=== PATIENT | female | born 1990 | race Hispanic/Latino ===

== ENCOUNTER → 2018-06-04 | Day surgery (SDC) | payer OTHER ==
[~2018-06-04] MED LIST: LIDOCAINE 1% MPF 30 ML VIAL SQ ONE; LIDOCAINE 1% MPF 5 ML VIAL ONE; Ringers Lactate 1,000 ML IV ONE; TERBUTALINE SULF 1 MG/1ML SQ ONE
--- NOTE | 2018-06-04 11:47 | P.HP ---
Certification for Inpatient Patient admitted to: Observation With expected LOS: <2 Midnights Patient will require the following post-hospital care: None Practitioner: I am a practitioner with admitting privileges, knowledge of patient current condition, hospital course, and medical plan of care. Services: Services provided to patient in accordance with Admission requirements found in Title 42 Section 412.3 of the Code of Federal Regulations Patient History Date of Service: 06/05/18 Reason for admission: Cerclage removal History of Present Illness: 28 y.o. a 37w1d admitted for cerclage removal. Pt had an emergency cerclage placement at 21 weeks. Removal was attempted in the office yesterday and without success. The knot anteriorly was removed, however, the posterior part of suture remained in place. She is being admitted today as an outpatient for removal with admit to obs for observation post procedure. LAURA: 06/24/2018 Allergies NKDA Allergy (Uncoded 10/25/15 08:18) Unknown Home medications list reviewed: Yes - Past Medical/Surgical History -: Incompetent cervix -: H/o PTB -: Emergency Peterson cerclage placement - Social History Smoking Status: Never smoker Alcohol use: No CD- Drugs: No Caffeine use: No Place of Residence: Home Review of Systems Mild cramping Physical Examination - Physical Exam General: Alert, In no apparent distress, Oriented x3 Respiratory: Other (Normal effort) Cardiovascular: Normal pulses Musculoskeletal: No swelling, No erythema, No tenderness Integumentary: No rashes, No breakdown Neurological: Normal speech, Normal strength at 5/5 x4 extr Female Exam - Female Pelvic Cervix: Dilation (2 cm, cerclage palpable on digital exam), Effacement (50), station (-3) Uterus: Non-tender, Soft, Gravid - Obstetrics heart rate tracing: Category 1 Contractions: Frequency (Irritability) Amniotic membrane: Intact Assessment and Plan - Problems (Diagnosis) (1) Cervical cerclage suture present in third trimester Current Visit: Yes Status: Acute Plan: Admitted for cerclage removal to be done with paracervical block. The patient to be monitored following procedure for possible onset of labor - Advance Directives Does patient have a Living Will: No Does patient have a Durable POA for Healthcare: No
--- NOTE | 2018-06-04 22:48 | P.OP ---
Preoperative diagnosis: Peterson cerclage removal Postoperative diagnosis: Same with embedded suture material in posterior cervix Primary procedure: Cerclage removal Anesthesia: Para-cervical block Estimated blood loss: 100 cc Specimen: None Findings: See operative report Operative Technique: Findings: Cervical dilation 3-4 cm, thick, -2 station. Suture material not visible, but palpable on exam on posterior cervix. Unable to remove remaining suture. Procedure: The patient was brought to the Operating Room with an IV in place. An appropriate time out was done. She was positioned in [facility]-cane stirrups. She was prepped and draped in the usual sterile fashion. Next, Joyner and right angle retractors were placed in the vagina to bring the cervix into view. A total of 20 cc of 1% lidocaine plain was injected for a paracervical block. Anesthesia was confirmed. A ring forcep was used to gently grasp the cervix and elevate it to locate remaining suture material on posterior cervix. Suture was not visualized, but was be palpable in the internal os. Retractors were removed and a large disposable bivalve speculum was used instead. Suture material was still not visualized, however. Gentle inspection of the the cervix was done in a circumferential manner, but no suture material was seen. The speculum was removed. Palpation confirmed suture material noted to be embedded along the posterior lip of the cervix. No visible suture was located for removal. Patient began to complain of discomfort and feeling pressure. Procedure was aborted and the remaining cerclage was not able to be removed. Bleeding was minimal. There were no complications. Patient was taken to recovery in good condition for monitoring and repeat SVE. Complications: Other (Unable to remove cerclage) Fluids & blood products: Per anesthesia Transferred to: Recovery Room Condition: Good
== END ==
LOC: L&D 09:59
PROVIDERS: ATTEND Obstetrics & Gynecology
PROC: 0UCC7ZZ Extirpation of Matter from Cervix, Via Natural or Artificial Opening (ICD-10-PCS; principal; 2018-06-04)
DX: O34.33 Maternal care for cervical incompetence, third trimester (principal); Z53.8 Procedure and treatment not carried out for other reasons
CPT/HCPCS: 99218; J3105

== ENCOUNTER 2018-06-18 07:00 | Inpatient (IN) | payer OTHER ==
[2018-06-18] MEDS ORDERED: Ringers Lactate 1,000 ML IV PRN (07:40)
[2018-06-18] MEDS ORDERED: CARBOPROST TROME 250 MCG/ML IM PRN (07:40)
[2018-06-18] MEDS ORDERED: METHYLERGONOVINE 0.2MG/ML AMP IM PRN (07:40)
[2018-06-18] MEDS ORDERED: Ringers Lactate 1,000 ML IV SCH (08:00)
[2018-06-18] MEDS ORDERED: OXYTOCIN/LR 20 UNIT/1,000 ML BAG IV SCH (08:00)
[2018-06-18 08:03] VITALS: BMI 37.8
[2018-06-18 08:08] LABS: RPR Titer ND
[2018-06-18 08:11] LABS: Urine Appearance CLEAR; Urine Bilirubin NEGATIVE (NEG); Urine Blood NEGATIVE (NEG); Urine Color YELLOW; Urine Glucose NEGATIVE (NEG); Urine Protein NEGATIVE (NEG); Urine Urobilinogen 0.2 mg/dL (0.2-1.0); Urine pH 6.5 (5.0-7.0)
[2018-06-18 08:13] LABS: Urine Microscopic Reflex ORDER UMIC
[2018-06-18 08:25] LABS: Absolute Lymphocytes (CBC) 1.3 K/uL (0.7-4.9); Absolute Monocytes 0.5 K/uL (0.1-1.3); Absolute Neutrophil 5.9 K/uL (1.8-8.0); Basophils % 0.3 % (0-1.3); Eosinophils % 0.9 % (0-4.4); Hematocrit 29.6 % (36.0-45.0); Lymphocytes % 16.9 % (15.3-44.8); MCV 85.5 fL (80-100); MPV 10.6 fL (7.6-11.3); Monocytes % 6.1 % (3.3-12.3); RBC Red Blood Cell Count 3.47 M/uL (3.86-4.86)
[2018-06-18 08:29] LABS: Urine Bacteria 20-50 /HPF (<20); Urine RBC <5 /HPF (NONE SEEN)
[2018-06-18 08:30] LABS: Urine Culture Reflex Order NOT NEEDED; Urine Mucus MOD /HPF (NONE SEEN)
[2018-06-18] MEDS ORDERED: BUTORPHANOL 1 MG/ML INJ IV PRN (09:09)
[2018-06-18] MEDS ORDERED: PROMETHAZINE 25 MG/ML VIAL IV PRN (09:09)
[2018-06-18] MEDS ORDERED: PROMETHAZINE 25 MG/ML VIAL ONE (09:17)
[2018-06-18] MEDS ORDERED: BUTORPHANOL 1 MG/ML INJ ONE (09:17)
[2018-06-18] MEDS ORDERED: FENTANYL/BUPIVACAINE/NS/PF 200 MCG/100 ML BAG EP PRN (09:51)
[2018-06-18] MEDS ORDERED: BUPIVACAINE 0.25% PF 10 ML VIAL IV ONE (09:52)
[2018-06-18] MEDS ORDERED: FENTANYL CITR 100 MCG/2 ML ONE (10:51)
[2018-06-18] MEDS ORDERED: LIDOCAINE 2% INJ, 20 mL 0 ML ONE (11:31)
[2018-06-18] MEDS ORDERED: BISACODYL 10 MG RECTAL SUPP RECT PRN (11:38)
[2018-06-18] MEDS ORDERED: ZOLPIDEM TARTRATE 5 MG TABLET PO PRN (11:38)
[2018-06-18] MEDS ORDERED: DOCUSATE NA/SENNA CONC 1 TAB PO PRN (11:38)
[2018-06-18] MEDS ORDERED: METHYLERGONOVINE 0.2 MG TAB PO PRN (11:38)
[2018-06-18] MEDS ORDERED: ACETAMINOPHEN 500 MG TAB PO PRN (11:38)
[2018-06-18] MEDS ORDERED: IBUPROFEN 200 MG TAB PO PRN (11:38)
[2018-06-18] MEDS ORDERED: ONDANSETRON 4 MG (ODT) TAB PO PRN (11:38)
[2018-06-18] MEDS ORDERED: Oxycodone HCl/Acetaminophen 1 TAB TAB PO PRN (11:38)
[2018-06-18] MEDS ORDERED: METHYLERGONOVINE 0.2MG/ML AMP IM ONE (12:41)
--- NOTE | 2018-06-18 13:53 | HP ---
Date of Admission: 06/18/2018 History Of Present Illness: Zee is a 28-year-old, 6, para 2-1-2-3, who presents at 39 week s and 1 day gestation for elective induction of labor. 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 The patient received a rescue cerclage by [facility], which was done on 2017. Cerclage was removed on June 03, 2018 at which point the patient was 37 weeks gestati on. Once the cerclage was removed, a few days later, the patient dilated to 3-4 cm. She has been at 3-4 cm for the last 3 weeks. When she was seen on the office on Saturday, she stated that she desires an elective induction of labor. Discussed with the patient that we can schedule this once she is 39 weeks gestation. The patient states she has been having some back pain and irregular contractions. She denies leakage of fluid and reports good movement. See record for further detail s. Past Medical History: The patient denies. Past Surgical History: Rescue cerclage placement and removal. Obstetrical And Gynecologic History: She has a history of 3 vaginal births and 2 abortions. She 2 p rior preterms, 1 at 27 weeks and 1 at 37 weeks. Her first was at 40 weeks ge station and also includes an abnormal Pap smear with HPV. Social History: Denies tobacco, alcohol, or drug use. She is single with the father of the baby. Family History: Noncontributory. Physical Examination: Vital Signs: On admission, blood pressure is 117/77, pulse of 77, respirations 18, and temperature i s 98.0. General: The patient resting in bed, mild distress due to contractions. Head and Neck: Normocephalic, atraumatic. Neck: Supple. Heart: Regular rate and rhythm. Respiratory: Symmetric, nonlabored breathing. Abdomen: Gravid. Extremities: Bilateral lower extremities, no clubbing, cyanosis, or edema. Vaginal: 4 cm dilated, 70% effaced, -1 station. Rupture of membranes was performed. Clear fluid is noted. Laboratory Findings: GBS is negative. White blood cell count 7.7, hemoglobin 10.1, hematocrit 29.3, and platelet count is 204. Urine, no protein. Blood type, she is B positive. No antibodies. Rube lla immune. heart rate monitoring, baseline heart rate of 130, moderate variability, goo d accelerations noted. Category 2 tracing. Contractions are every 3-4 minutes. Pitocin is at 4 mil liunits. Assessment And Plan: Zee hernandez is a 28-year-old, 6, para 2-1-2-3, who presents at 39 weeks and 1 day gestation for elective induction of labor. Pitocin is being given for labor augm entation. Rupture of membranes has been performed. GBS is negative. The patient declined epidural placed at this time, desires IV pain medication. Anticipate vaginal . ALEX Voice ID: [id number]
--- NOTE | 2018-06-18 21:50 | P.OP ---
Date of Service: 06/18/18 Findings and Operative Technique Patient delivered a viable male in cephalic presentation on 06/18/18 at 11 :30 AM. Once was delivered the nose and mouth were suctioned with a suction bulb. The cord was clamped and cut and was placed on mother's abdomen for skin to skin bonding. Attention was then turned to the placenta which was delivered with gentle traction at 11:32AM. Placenta was examined and noted to be intact and sent to pathology. Superficial perineal lacerations were noted. No sutures were required. EBL was 300 cc. Fundus is firm. Mom and baby are doing well. APGARS were 9/9. Weight was found to be 7 lb. First stage of labor was 2 hours and 6 mins. Second stage was 9 minutes.
[2018-06-18 23:29] LABS: RPR (Rapid Plasma Reagin) NON-REACT (NON-REACT)
[2018-06-19] MEDS: Oxycodone HCl/Acetaminophen 1 TAB TAB PO PRN ×2 (03:57→09:28)
[2018-06-19 04:42] LABS: Absolute Lymphocytes (CBC) 1.9 K/uL (0.7-4.9); Absolute Monocytes 0.8 K/uL (0.1-1.3); Absolute Neutrophil 8.4 K/uL (1.8-8.0); Basophils % 0.6 % (0-1.3); Eosinophils % 0.6 % (0-4.4); Hematocrit 28.6 % (36.0-45.0); Lymphocytes % 16.9 % (15.3-44.8); MCH 29.1 pg (27.0-35.0); MCV 86.2 fL (80-100); MPV 10.9 fL (7.6-11.3); Monocytes % 7.3 % (3.3-12.3); RBC Red Blood Cell Count 3.32 M/uL (3.86-4.86)
[2018-06-19] MEDS ORDERED: Tdap (Diph,Pertuss(Acell),Tet Vac) 0.5 ML SYR IMVAC ONE (10:13)
[2018-06-19 11:39] VITALS: BP 98/52; TEMP 98.5
--- NOTE | 2018-06-19 22:27 | P.DS ---
Admission Date: 06/18/18 Discharge Date: 06/25/18 Disposition: ROUTINE DISCHARGE Discharge Condition: GOOD Brief History of Present Illness: see h&p Hospital Course: Patient did well following delivery of the . She has been bonding well with the baby. Her pain is well controlled. She is tolerating a regular diet. She is voiding without difficulty. Vital Signs/Physical Exam: Temp Pulse Resp BP Pulse Ox 98.5 F 75 18 98/52 L 06/19/18 11:38 06/19/18 11:38 06/19/18 11:38 06/19/18 11:38 General: Alert, In no apparent distress HEENT: Atraumatic Neck: Supple Respiratory: Normal air movement Cardiovascular: Normal pulses Gastrointestinal: No rebound, No guarding, Other (fundus firm ) Neurological: Normal gait, Normal speech Laboratory Data at Discharge: WBC 11.3 K/uL (4.3-10.9) H D 06/19/18 04:05 Hgb 9.7 g/dL (12.0-15.0) L 06/19/18 04:05 Hct 28.6 % (36.0-45.0) L 06/19/18 04:05 Plt Count 199 K/uL (152-406) 06/19/18 04:05 Home Medications: NK [No Home Meds] 06/18/18 Diet: Regular Activity: No lifting more than 10 lbs Followup: Prashanth Francis DO [ACTIVE - CAN ADMIT] - (Follow up care with Dr. Francis in 6 weeks. [phone])
[2018-06-20 19:12] LABS: HBsAG Nonreactive (Nonreactive)
== END 2018-06-19 13:40 | disposition home or self-care (01) | DRG 775 ==
LOC: 2ND-WC 07:00
PROVIDERS: ADMIT Student in an Organized Health Care Education/Training Program; ATTEND Student in an Organized Health Care Education/Training Program
PROC: 10E0XZZ Delivery of Products of Conception, External Approach (ICD-10-PCS; principal; 2018-06-18)
PROC: 10907ZC Drainage of Amniotic Fluid, Therapeutic from Products of Conception, Via Natural or Artificial Opening (ICD-10-PCS; 2018-06-18)
DX: O70.0 First degree perineal laceration during delivery (principal); Z3A.39 39 weeks gestation of pregnancy; Z37.0 Single live birth; Z14.8 Genetic carrier of other disease; Z23 Encounter for immunization
CPT/HCPCS: 36415; 81003; 81015; 85025; 86592; 86901; 87340; 88307; 90715; J0595; J2210; J2550; J2590; J3010

== ENCOUNTER 2019-03-15 20:21 | Emergency (ER) | payer OTHER, SELFPAY ==
--- NOTE | 2019-03-15 21:20 | ER ---
Nurse's Notes [facility] Name: Zee Catalan Age: 28 yrs Sex: Female : 1990 Arrival Date: 03/15/2019 Time: 20:27 Bed 7 Private MD: Diagnosis: Acute bacterial pharyngitis;Acute upper respiratory infection, unspecified Presentation: 03/15 20:28 Presenting complaint: Patient states: She has had a cough for the past week, that has aj1 gotten worse over the past 3 days. She started to lose her voice and get a sore throat yesterday, but today it started hurting more, felt more swollen and it hurts to swallow. Respirations even and unlabored, breath sounds CTA. Transition of care: patient was not received from another setting of care. Onset of symptoms was February 2019. Risk Assessment: Do you want to hurt yourself or someone else? Patient reports no desire to harm self or others. Initial Sepsis Screen: Does the patient meet any 2 criteria? HR > 90 bpm. No. Patient's initial sepsis screen is negative. Does the patient have a suspected source of infection? Yes: Productive cough/pneumonia. Care prior to arrival: None. 20:28 Method Of Arrival: Ambulatory aj1 20:28 Acuity: BENY 4 aj1 Triage Assessment: 20:30 General: Appears in no apparent distress. comfortable, Behavior is calm, cooperative, aj1 appropriate for age. Pain: Complains of pain in forehead, left aspect of posterior pharynx and right aspect of posterior pharynx Pain does not radiate. Pain: Pain currently is 10 out of 10 on a pain scale. EENT: Throat is reddened has enlarged tonsils bilaterally Reports sore throat. Neuro: Level of Consciousness is awake, alert, obeys commands, Oriented to person, place, time, situation. Cardiovascular: Patient's skin is warm and dry. Respiratory: Reports cough that is productive, Airway is patent Respiratory effort is even, unlabored, Respiratory pattern is regular, symmetrical. ADVISORY INTERN: 20:30 LMP N/A - Recent miscarriage aj1 Historical: - Allergies: 20:30 No Known Allergies; aj1 - Home Meds: 20:30 Zyrtec Oral [Active]; aj1 - PMHx: 20:30 None; aj1 - PSHx: 20:30 None; aj1 - Immunization history:: Flu vaccine is not up to date. - Social history:: Smoking status: Patient/guardian denies using tobacco. - Ebola Screening: : Patient denies travel to an Ebola-affected area in the 21 days before illness onset. Screenin:45 Abuse screen: Denies threats or abuse. Denies injuries from another. Nutritional aa1 screening: No deficits noted. Tuberculosis screening: No symptoms or risk factors identified. Fall Risk None identified. Assessment: 20:45 General: Appears in no apparent distress. comfortable, Behavior is calm, cooperative, aa1 appropriate for age. Pain: Complains of pain in throat Pain began 2-3 days ago. Neuro: Level of Consciousness is awake, alert, obeys commands, Oriented to person, place, time, situation, Moves all extremities. Gait is steady. Cardiovascular: Heart tones S1 S2 present Rhythm is regular. Respiratory: Reports cough that is non-productive, Airway is patent Respiratory effort is even, unlabored, Respiratory pattern is regular, symmetrical, Breath sounds are clear bilaterally. GI: No signs and/or symptoms were reported involving the gastrointestinal system. : No signs and/or symptoms were reported regarding the genitourinary system. EENT: Throat is clear. Derm: Skin is intact, is healthy with good turgor, Skin is pink, warm \T\ dry. Musculoskeletal: Circulation, motion, and sensation intact. Capillary refill < 3 seconds. 21:37 Reassessment: Patient appears in no apparent distress at this time. Patient is alert, aa1 oriented x 3, equal unlabored respirations, skin warm/dry/pink. Discussed d/c \T\ f/u instructions with pt \T\ friend; denies questions or concerns at this time. Amb to lobby with steady gait. Vital Signs: 20:30 BP 130 / 63; Pulse 93; Resp 18; Temp 98.8; Pulse Ox 100% on R/A; Weight 74.84 kg (R); aj1 Height 5 ft. 1 in. (154.94 cm) (R); Pain 10/10; 21:37 BP 122 / 67; Pulse 89; Resp 16; Temp 98.7; Pulse Ox 99% on R/A; Pain 5/10; aa1 20:30 Body Mass Index 31.18 (74.84 kg, 154.94 cm) aj1 ED Course: 20:27 Patient arrived in ED. es 20:30 Triage completed. aj1 20:30 Arm band placed on Patient placed in an exam room. aj1 20:45 Patient has correct armband on for positive identification. Bed in low position. Call aa1 light in reach. Pulse ox on. NIBP on. 20:54 Nicola Novoa PA is PHCP. jr8 20:54 Moisés Lares MD is Attending Physician. jr8 21:06 Allie Lopes, RN is Primary Nurse. aa1 21:37 No provider procedures requiring assistance completed. Patient did not have IV access aa1 during this emergency room visit. Administered Medications: 21:30 Drug: Tussionex Pennkinetic ER 5 ml Route: PO; aa1 21:36 Follow up: Response: Medication administered at discharge. aa1 Outcome: 21:19 Discharge ordered by . jr8 21:37 Discharged to home ambulatory, with friend. aa1 21:37 Condition: good 21:37 Discharge instructions given to patient, friend, Instructed on discharge instructions, follow up and referral plans. medication usage, Demonstrated understanding of instructions, follow-up care, medications, Prescriptions given X 3. 21:39 Patient left the ED. aa1 Signatures: Shawnee Wyman RN RN aj1 Allie Lopes, FAYE RN aa1 Liliana Arellano Josh, PA PA jr8
--- NOTE | 2019-03-15 21:20 | EDPHYS ---
Physician Documentation [facility] Name: Zee Catalan Age: 28 yrs Sex: Female : 1990 Arrival Date: 03/15/2019 Time: 20:27 Bed 7 Private MD: ED Physician Moisés Lares HPI: 03/15 21:14 This 28 yrs old Female presents to ER via Ambulatory with complaints of Throat jr8 swelling. 21:14 The patient presents with sore throat. The patient describes throat pain as raw. Onset: jr8 The symptoms/episode began/occurred gradually, 2 day(s) ago. Severity of symptoms: At their worst the symptoms were moderate, in the emergency department the symptoms are unchanged. Modifying factors: The symptoms are alleviated by nothing, the symptoms are aggravated by swallowing, Patient's oral intake status: good. Associated signs and symptoms: Pertinent positives: cough, rhinorrhea. The patient has not experienced similar symptoms in the past. The patient has not recently seen a physician. Patient stated that she has had cough and rhinorrhea for one week. Stated that she now has sore throat for past two days that is getting worse . [employer]: 20:30 LMP N/A - Recent miscarriage aj1 Historical: - Allergies: 20:30 No Known Allergies; aj1 - Home Meds: 20:30 Zyrtec Oral [Active]; aj1 - PMHx: 20:30 None; aj1 - PSHx: 20:30 None; aj1 - Immunization history:: Flu vaccine is not up to date. - Social history:: Smoking status: Patient/guardian denies using tobacco. - Ebola Screening: : Patient denies travel to an Ebola-affected area in the 21 days before illness onset. ROS: 21:14 Eyes: Negative for injury, pain, redness, and discharge, Neck: Negative for injury, jr8 pain, and swelling, Cardiovascular: Negative for chest pain, palpitations, and edema, Abdomen/GI: Negative for abdominal pain, nausea, vomiting, diarrhea, and constipation, Back: Negative for injury and pain, MS/Extremity: Negative for injury and deformity, Skin: Negative for injury, rash, and discoloration, Neuro: Negative for headache, weakness, numbness, tingling, and seizure. 21:14 Constitutional: Positive for chills, fever. 21:14 ENT: Positive for rhinorrhea, sinus congestion, sore throat. 21:14 Respiratory: Positive for cough, Negative for dyspnea on exertion, shortness of breath, sputum production, wheezing. Exam: 21:16 Eyes: Pupils equal round and reactive to light, extra-ocular motions intact. Lids and jr8 lashes normal. Conjunctiva and sclera are non-icteric and not injected. Cornea within normal limits. Periorbital areas with no swelling, redness, or edema. Neck: Trachea midline, no thyromegaly or masses palpated, and no cervical lymphadenopathy. Supple, full range of motion without nuchal rigidity, or vertebral point tenderness. No Meningismus. Cardiovascular: Regular rate and rhythm with a normal S1 and S2. No gallops, murmurs, or rubs. Normal PMI, no JVD. No pulse deficits. Respiratory: Lungs have equal breath sounds bilaterally, clear to auscultation and percussion. No rales, rhonchi or wheezes noted. No increased work of breathing, no retractions or nasal flaring. Abdomen/GI: Soft, non-tender, with normal bowel sounds. No distension or tympany. No guarding or rebound. No evidence of tenderness throughout. Back: No spinal tenderness. No costovertebral tenderness. Full range of motion. Skin: Warm, dry with normal turgor. Normal color with no rashes, no lesions, and no evidence of cellulitis. MS/ Extremity: Pulses equal, no cyanosis. Neurovascular intact. Full, normal range of motion. Neuro: Awake and alert, GCS 15, oriented to person, place, time, and situation. Cranial nerves II-XII grossly intact. Motor strength 5/5 in all extremities. Sensory grossly intact. Cerebellar exam normal. Normal gait. 21:16 ENT: Exam is negative for earache, ear discharge, TM abnormalities, nasal discharge, Mouth: Lips: moist, Oral mucosa: pink and intact, moist, Gums: pink, Tongue: is moist, Posterior pharynx: Airway: patent, Tonsils: with erythema, no enlargement, no exudate, no ulcerations, Uvula: midline, non-edematous, no erythema, swelling, is not appreciated, erythema, that is mild. Vital Signs: 20:30 BP 130 / 63; Pulse 93; Resp 18; Temp 98.8; Pulse Ox 100% on R/A; Weight 74.84 kg (R); aj1 Height 5 ft. 1 in. (154.94 cm) (R); Pain 10/10; 21:37 BP 122 / 67; Pulse 89; Resp 16; Temp 98.7; Pulse Ox 99% on R/A; Pain 5/10; aa1 20:30 Body Mass Index 31.18 (74.84 kg, 154.94 cm) [facility] MDM: 20:54 Patient medically screened. jr8 21:16 Data reviewed: vital signs, nurses notes, lab test result(s), Flu: negative strep (-). jr8 Data interpreted: Pulse oximetry: on room air is 100 %. Interpretation: normal. Counseling: I had a detailed discussion with the patient and/or guardian regarding: the historical points, exam findings, and any diagnostic results supporting the discharge/admit diagnosis, lab results, the need for outpatient follow up, a family practitioner, to return to the emergency department if symptoms worsen or persist or if there are any questions or concerns that arise at home. 03/15 20:28 Order name: Flu; Complete Time: 21:14 [facility] 03/15 20:28 Order name: Strep; Complete Time: 21:03 [facility] 03/15 20:58 Order name: Throat Culture EDMS Administered Medications: 21:30 Drug: Tussionex Pennkinetic ER 5 ml Route: PO; aa1 21:36 Follow up: Response: Medication administered at discharge. aa Disposition: 03/15/19 21:19 Discharged to Home. Impression: Acute bacterial pharyngitis, Acute upper respiratory infection, unspecified. - Condition is Stable. - Discharge Instructions: Pharyngitis, Upper Respiratory Infection, Adult. - Prescriptions for Amoxicillin 875 mg Oral Tablet - take 1 tablet by ORAL route every 12 hours for 7 days; 14 tablet. Prednisone 20 mg Oral Tablet - take 1 tablet by ORAL route once daily for 5 days; 5 tablet. Guaifenesin AC 10- 100 mg/5 mL Oral Liquid - take 10 milliliter by ORAL route every 4 hours As needed; 240 milliliter. - Medication Reconciliation Form, Thank You Letter, Antibiotic Education, Prescription Opioid Use form. - Follow up: Private Physician; When: 1 week; Reason: Recheck today's complaints, Continuance of care, Re-evaluation by your physician. - Problem is new. - Symptoms have improved. Addendum: 03/17/2019 01:29 Co-signature as Attending Physician, Moisés Lares MD. g s Signatures: Dispatcher [employer] Shawnee Dumont, RN RN aj1 Allie Lopes RN RN aa1 Nicola Novoa, PA PA jr8 Moisés Lares MD MD gs Corrections: (The following items were deleted from the chart) 03/15 21:39 21:19 03/15/2019 21:19 Discharged to Home. Impression: Acute bacterial pharyngitis; aa1 Acute upper respiratory infection, unspecified. Condition is Stable. Forms are Medication Reconciliation Form, Thank You Letter, Antibiotic Education, Prescription Opioid Use. Follow up: Private Physician; When: 1 week; Reason: Recheck today's complaints, Continuance of care, Re-evaluation by your physician. Problem is new. Symptoms have improved. jr8
[2019-03-15] MEDS ORDERED: HYDROCODONE/CHLORPHEN 5 ML/OSYR ONE (21:42)
[2019-03-15 21:48] VITALS: BP 122/67; TEMP 98.7; O2SAT 99
== END 2019-03-15 21:39 | disposition home or self-care (01) ==
LOC: ER 20:21
DX: J02.8 Acute pharyngitis due to other specified organisms (principal); B96.89 Other specified bacterial agents as the cause of diseases classified elsewhere; J06.9 Acute upper respiratory infection, unspecified
CPT/HCPCS: 87070; 87081; 87804; 99283

== ENCOUNTER 2020-12-08 12:51 | Emergency (ER) | payer OTHER, SELFPAY ==
--- OUTSIDE RECORDS SUMMARY | 2020-12-08 12:55 | XMS REPORT | Continuity of Care Document ---
:1990 Author Care Team Providers Name Role Phone PHYSICIAN Primary Care Physician Unavailable Allergies, Adverse Reactions, Alerts No known allergies. Medications No known medications. Problems No problem information available. Procedures Procedure Date Performed Status Transvaginal obstetrical October 12, 2020 completed ultrasound Relevant Diagnostic Tests and/or Laboratory Data Laboratory Results Test Date/Time Result Interpretation Reference Result Comment Performing Range Site White Blood November 9.8 4.0-11.5 [facility], [address] Count 2019 [facility] [address] 9:10pm Red Blood November 3.98 3.80-5.20 [facility], [address] Count 2019 [facility] 19158 9:10pm Hemoglobin November 12.7 10.5-15.7 [facility], [address] 2019 [facility] 68276 9:10pm Hematocrit September 38.0 34.0-50.0 [facility], [address] 2019 [facility] [address] 9:10pm Mean September 95.5 86-100 [facility], [address] Corpuscular 2019 [facility] [address] Volume 9:10pm Mean September 31.9 26.2-33.4 [facility], [address] Corpuscular 2019 [facility] [address] Hemoglobin 9:10pm Mean September 33.4 30-34 [facility], [address] Corpuscular 2019 [facility] [address] Hemoglobin 9:10pm Concent Red Cell November 12.4 12.0-15.5 [facility], [address] Distribution 2019 [facility] [address] Width 9:10pm Platelet Count September 301 165-450 [facility], [address] 2019 [place] [id number] 9:10pm Mean Platelet November 10.5 9.4-12.6 [facility], [address] Volume 2019 [place] [id number] 9:10pm Neutrophils November 74.1 44.4-80.1 [facility], [address] (%) (Auto) 2019 [place] [id number] 9:10pm Immature November 0.4 0.0-0.4 [facility], [address] Granulocyte % 2019 [place] [id number] (Auto) 9:10pm Lymphocytes November 19.2 10.0-50.0 [facility], [address] (%) (Auto) 2019 [place] [address] 9:10pm Monocytes (%) September 5.4 3.6-12.0 [facility], 104 [facility] (Auto) 2019 [place] [address] 9:10pm Eosinophils November 0.7 0.0-5.4 [facility], [address] (%) (Auto) 2019 [place] [address] 9:10pm Basophils (%) September 0.2 0.1-1.2 [facility], 104 [facility] (Auto) 2019 [place] [address] 9:10pm Neutrophils # November 7.23 1.56-6.13 [facility], 104 [facility] (Auto) 2019 [place] [address] 9:10pm Absolute November 0.0 0.0-0.03 [facility], 104 [facility] Immature 2019 [place] [address] Granulocyte 9:10pm (auto Lymphocytes # November 1.9 1.18-3.74 [facility], 104 [facility] (Auto) 2019 [place] [address] 9:10pm Monocytes # November 0.53 0.24-0.86 [facility], 10 4 [facility] (Auto) 2019 [place] [address] 9:10pm Eosinophils # November 0.07 0.04-0.36 [facility], 104 [facility] (Auto) 2019 [place] [address] 9:10pm Basophils # September 0.02 0.01-0.08 [facility], 10 4 [facility] (Auto) 2019 [place] [address] 9:10pm Nucleated Red November 0 0-0.2 [facility], 104 7TH Blood Cells % 2019 [facility] [address] 9:10pm Nucleated Red November 0 0 [facility], 104 [facility] Blood Cells # 2019 [facility] 270[address] 9:10pm Urine Color November YELLOW [facility], [address] 2019 [facility] [address] 9:17pm Urine November CLEAR CLEAR [facility], [address] Appearance 2019 [facility] 17896 9:17pm Urine Glucose November NEGATIVE NEGATIVE [facility], 104 [facility] (UA) 2019 [facility] [address]395 9:17pm Urine November NEGATIVE NEGATIVE [facility], 104 [facility] Bilirubin 2019 [facility] [address]497 9:17pm Urine Ketones September TRACE NEGATIVE [facility], 104 [facility] 2019 [place] [id number] 9:17pm Urine Specific November 1.035 1.003-1.03 [facility] , 104 [facility] [place] 2019 0 [facility] [address] 9:17pm Urine Blood November TRACE NEGATIVE [facility], 10 4 [facility] 2019 [place] [id number] 9:17pm Urine pH September 7.500 5-9 [facility], 104 [facility] 2019 [place] [id number] 9:17pm Urine Protein September 1+ (30 NEGATIVE [facility], 104 2019 mg/dL) [place] [address] 9:17pm Urine November 4.0-6.0 0.2-1.0 [facility], 104 [facility] Urobilinogen 2019 [facility] [address] 9:17pm Urine Nitrate September NEGATIVE NEGATIVE [facility], 104 [facility] 2019 [facility] [address]603 9:17pm Urine November NEGATIVE NEGATIVE [facility], 104 [facility] Leukocyte 2019 [facility] [address] Esterase 9:17pm Urine RBC September 1-5 0-5 [facility], 104 [facility] 2019 [place] [id number] 9:17pm Urine WBC September 1-5 0-5 [facility], 104 [facility] 2019 [facility] [address]63 9:17pm Urine November 1-5 0-5 [facility], 104 [facility] Epithelial 2019 [place] [id number] Cells 9:17pm Urine Bacteria September TRACE None [facility], 104 2019 Detect [facility] 48[address] 9:17pm Urine Casts September None None [facility], 10 4 2019 Detected Detect [facility] 03163 9:17pm Urine Culture September NO [facility], [address] Reflexed 2019 [facility] 016[address] 9:17pm Beta HCG, September 6088.0 0-5 REFERENCE [facility], 104 Quantitative 2019 [facility] [address] 9:16pm NON- PREMENOPAUSAL POST-MENOPAUSA L <7Weeks of Gestation Expected Result mIU/mL3 5.8 - 71.24 9.5 - 7505 217 - 7,1386 158 - 31,7957 3697 - 163,5638 32,065 - 149,5719 63,803 - 151,50408 46,509 - 186,82634 27,832 - 210,80780 13,950 - 62,81911 12,039 - 70,43874 9,040 - 56,80489 8,175 - 55,27157 8,099 - 58,176 Health Concerns Health Concerns may be documented in an alternate section. Chief Complaint and Reason for Visit Chief Complaint Female Urogenital Problems Reason for Visit [id number] Encounters Encounter Location(s) Arrival/Admit Date Discharge/Depart Date Provider(s) Departed Finger October 12, October 12, 2020 SAM [facility] [place] [address] 9:09pm 11:26pm MD Ctr Assessments No Assessments Information Available Functional Status No Functional Status information available Goals Goals may be documented in an alternate section. Immunizations No Immunization Information Available Mental Status No Mental Status Information Available Medical Equipment No Medical Equipment Information available Insurance Providers Guarantor Zee Catalan Address [address] [place] [address] Contact Info. Home Phone: Payer Policy Id Coverage Id Subscriber's Subscriber Id Effective E xpiration Name Date Date Medicaid [id number] Zee Catalan [id number] Plan of Treatment Future Tests Future scheduled test information is unavailable Pending Tests Pending diagnostic test information is unavailable Future Visits Future appointment information is unavailable Referrals to Other Providers Reason for Referral Start Provider Provider Contact Provider Address Referral Date Information MYNOR, GILLIAN Work Phone: [phone] [facility] [address] [place] Work Phone: [address] EDWARD Jiménez MD [facility] [address] Future Procedures Future procedure information is unavailable Future Medications Future medication information is unavailable Patient Instructions Threatened Miscarriage Social History Smoking Status Status Date of Observation Never smoked tobacco (finding) October 12, 2020 9:1 0pm Assigned Sex Female Vital Signs No vital signs result information available.
--- OUTSIDE RECORDS SUMMARY | 2020-12-08 12:55 | XMS REPORT | Continuity of Care Document ---
:1990 Author Care Team Providers Name Role Phone PHYSICIAN Primary Care Physician Unavailable Allergies, Adverse Reactions, Alerts No known allergies. Medications No known medications. Problems No problem information available. Procedures Procedure Date Performed Status EMERGENCY DEPT VISIT October 12, 2020 completed COMPLETE CBC W/AUTO DIFF WBC October 12, 2020 completed CHORIONIC GONADOTROPIN TEST October 12, 2020 completed BLOOD TYPING SEROLOGIC RH(D) October 12, 2020 completed URINALYSIS AUTO W/SCOPE October 12, 2020 completed ROUTINE VENIPUNCTURE October 12, 2020 completed TRANSVAGINAL US OBSTETRIC October 12, 2020 completed Transvaginal obstetrical October 12, 2020 completed ultrasound Transvaginal obstetrical October 26, 2020 completed ultrasound Relevant Diagnostic Tests and/or Laboratory Data Laboratory Results Test Date/Time Result Interpretation Reference Result Comment Performing Range Site White Blood October 10.3 4.0-11.5 [facility], [address] Count 2019 [facility] [place] [address] 9:31pm Red Blood October 3.62 3.80-5.20 [facility], [address] Count 2019 [facility] [place] [address] 9:31pm Hemoglobin October 11.5 10.5-15.7 [facility], [address] 2019 [facility] X [address] 9:31pm Hematocrit October 34.0 34.0-50.0 [facility], [address] 2019 [facility] X [address] 9:31pm Mean October 93.9 86-100 [facility], [address] [facility] [address] Volume 9:31pm Mean October 31.8 26.2-33.4 [facility], [address] Corpuscular 2019 [place] [address] Hemoglobin 9:31pm Mean Marcelo 33.8 30-34 [facility], [address] Corpuscular [address] [facility] [address] Hemoglobin 9:31pm Concent Red Cell Marcelo 12.3 12.0-15.5 [facility], [address] Distribution [address] [place] [address] Width 9:31pm Platelet Count Marcelo 254 165-450 [facility], [address] 2019 [facility] X [address] 9:31pm Mean Platelet Marcelo 10.6 9.4-12.6 [facility], [address] Volume 2019 [facility] X [address] 9:31pm Neutrophils Marcelo 73.7 44.4-80.1 [facility], [address] (%) (Auto) 2019 [facility] [address] 9:31pm Immature Marcelo 0.4 0.0-0.4 [facility], [address] Granulocyte % 2019 [place] [address] (Auto) 9:31pm Lymphocytes Marcelo 20.0 10.0-50.0 [facility], [address] (%) (Auto) [address] [facility] [address]798 9:31pm Monocytes (%) Marcelo 5.0 3.6-12.0 [facility], [address] (Auto) 2019 [facility] X [address] 9:31pm Eosinophils Marcelo 0.7 0.0-5.4 [facility], [address] (%) (Auto) [address] [facility] [address] 9:31pm Basophils (%) Marcelo 0.2 0.1-1.2 [facility], [address] (Auto) 2019 [facility] X [address] 9:31pm Neutrophils # Marcelo 7.60 1.56-6.13 [facility], [address] (Auto) 2019 [facility] X [address] 9:31pm Absolute Marcelo 0.0 0.0-0.03 [facility], [address] Immature 2019 [facility] [place] [address] Granulocyte 9:31pm (auto Lymphocytes # Marcelo 2.1 1.18-3.74 [facility], [address] (Auto) 2019 [facility] X [address] 9:31pm Monocytes # Marcelo 0.52 0.24-0.86 [facility], [address] (Auto) 2019 [place] X [address] 9:31pm Eosinophils # Marcelo 0.07 0.04-0.36 [facility], 104 [facility] (Auto) 2019 [place] [address] 9:31pm Basophils # October 0.02 0.01-0.08 [facility], 10 4 [facility] (Auto) 2019 [place] [address] 9:31pm Nucleated Red Marcelo 0 0-0.2 [facility], 104 [facility] Blood Cells % 2019 [place] [address] 9:31pm Nucleated Red Marcelo 0 0 [facility], 104 [facility] Blood Cells # 2019 [place] [address] 9:31pm Urine Color Marcelo LIGHT [facility], 10 4 [facility] 2019 [place] [address] 9:10pm Urine Marcelo CLEAR CLEAR [facility], 104 [facility] Appearance 2019 [place] [address] 9:10pm Urine Glucose Marcelo NEGATIVE NEGATIVE [facility], 104 [facility] (UA) 2019 [place] [address] 9:10pm Urine Marcelo NEGATIVE NEGATIVE [facility], 104 [facility] Bilirubin 2019 [facility] X [address] 9:10pm Urine Ketones October 1+(SMALL) NEGATIVE [facility], 104 [facility] 2019 [place] [address] 9:10pm Urine Specific Marcelo 1.029 1.003-1.03 [facility] , 104 [facility] [place] 2019 0 [place] [address] 9:10pm Urine Blood Marcelo 3+ (LARGE) NEGATIVE [facility], 1 04 [facility] 2019 [place] [address] 9:10pm Urine pH Marcelo 6.500 5-9 [facility], 104 [facility] 2019 [place] [address] 9:10pm Urine Protein Marcelo TRACE NEGATIVE [facility], 104 [facility] 2019 [place] [address] 9:10pm Urine Marcelo 2.0-3.0 0.2-1.0 [facility], 104 [facility] Urobilinogen 2019 [facility] [place] [address] 9:10pm Urine Nitrate Marcelo NEGATIVE NEGATIVE [facility], 104 [facility] 2019 [place] [address] 9:10pm Urine Marcelo 1+ NEGATIVE [facility], 104 [facility] Leukocyte 2019 [place] [address] Esterase 9:10pm Urine RBC October 30-49 0-5 [facility], 104 2019 [place] [address] 9:10pm Urine WBC October 30- 0-5 [facility], 2019 [place] [address] 9:10pm Urine October 25- 0-5 [facility], Epithelial 2019 [place] [address] Cells 9:10pm Urine Bacteria October None None [facility], 2019 Detected Detect [facility] [place] [address] 9:10pm Urine Casts October 26- None [facility], 10 4 2019 [place] [address] 9:10pm Urine Culture October YES [facility], Reflexed 2019 [place] [address] 9:10pm Beta HCG, October15.0 0-5 REFERENCE [facility], [facility] Quantitative [address] [facility]: [facility] [address] 9:31pm NON- PREMENOPAUSAL POST-MENOPAUSA L <7Weeks of Gestation Expected Result mIU/mL3 5.8 - 71.24 9.5 - 7505 217 - 7,1386 158 - 31,7957 3697 - 163,5638 32,065 - 149,5719 63,803 - 151,99681 46,509 - 186,85695 27,832 - 210,39595 13,950 - 62,28166 12,039 - 70,87966 9,040 - 56,99722 8,175 - 55,23985 8,099 - 58,176 Microbiology Results Procedure Source Result Collection Result Result Performin g Date/Time Date/Time Comment Site Urine Culture URINE,WALT SPECIMEN HAS October 26October 26, [facility], [address] 2019 9:10pm 2019 9:41pm [place] [address] RECEIVED IN LAB AND IS IN PROGRESS. Diagnostic Imaging Reports Report Dictated Date/Time Dictated By Status October 12, 2020 ISIAH POOL MD completed 10:45pm Patient: ZEE CATALAN MR#: [id number] 64 : 1990 Order[address] DrMagali: YAO ZHOUP Pt Status: REG ER Pt Location: ER Date/Time: 10/12/202117 Primary Care Physician: . NO PHYSICIAN Technologist(s): ZEE GARCIA Procedure(s): [id number] US/OB TRANSVAGINAL Signed US PELVIS HISTORY: Early . Pelvic pain. COMPARISON: None. TECHNIQUE: Grayscale, color Doppler, an d spectral Doppler ultrasound images of the pelvis were obtained. FINDINGS: There is an intrauterine gestational sa c with a mean sac diameter of 6.7 mm corresponding to 5 weeks 2 days. No yolk sac or pole is seen at this time. Both ovaries are normal in size and cont ain normal follicles, with the right ovary measuring 4.2 x 2.8 cm and the lef t ovary measuring 2.9 x 1.7 cm. Normal color Doppler blood flow is seen in both ovaries. There is a 2.7 x 1.9 cm corpus luteum right ovarian cyst. Small amount of pelvic free fluid. IMPRESSION: 1. Early intrauterine gestational sac of 5 weeks 2 days. No yolk sac or pole is seen at this time. Findings may represent early . Recommend short-term follow-up ultrasound imaging. 2. Small right ovarian corpus luteum c yst, for which no follow-up imaging is needed. Electronically signed by: Isiah Pool MD 10/12/2020 10:45 PM [employer] Transcribed By: [employer] SIGNED < electronically signed by ISIAH POOL MD> [id number] ISIAH POOL MD Health Concerns Health Concerns may be documented in an alternate section. Chief Complaint and Reason for Visit Chief Complaint Female Urogenital Problems Reason for Visit [id number] Encounters Encounter Location(s) Arrival/Admit Date Discharge/Depart Date Provider(s) Departed Melbeta October 26, 2020 October 27, 2020 SAM STOREY Emergency Room [facility] 8:42pm 12:48am Ctr Departed Melbeta October 12, October 12, 2020 SAM MAHER Emergency Room [facility] 2019 9:09pm 11:26pm MD Arshad Assessments No Assessments Information Available Functional Status No Functional Status information available Goals Goals may be documented in an alternate section. Immunizations No Immunization Information Available Mental Status No Mental Status Information Available Medical Equipment No Medical Equipment Information available Insurance Providers Guarantor Zee Catalan Address [address] [place] [address] Contact Info. Home Phone: Payer Policy Id Coverage Id Subscriber's Subscriber Id Effective E xpiration Name Date Date Medicaid [id number] Zee Catalan [id number] Plan of Treatment Future Tests Future scheduled test information is unavailable Pending Tests Pending diagnostic test information is unavailable Future Visits Future appointment information is unavailable Referrals to Other Providers Reason for Referral Start Provider Provider Contact Provider Address Referral Date Information PHYSICIAN, ARMANDO LUNDBERG, [place] Phone: [address] EDWARD Jiménez MD [facility] [address] Future Procedures Future procedure information is unavailable Future Medications Future medication information is unavailable Patient Instructions Threatened Miscarriage, [id number] Urinary Tract Infection, Adult, Easy-to- Read Social History Smoking Status Status Date of Observation Never smoked tobacco (finding) October 26, 2020 9:00 pm Observation Status Observation Response Date of Response Hx Physical Abuse No October 26, 2020 9 :00pm Assigned Sex Female Vital Signs No vital signs result information available.
--- NOTE | 2020-12-08 14:04 | RAD REPORT ---
EXAM DESCRIPTION: CT - Head Brain Wo Cont - 12/08/2020 1:47 pm CLINICAL HISTORY: Headache COMPARISON: None TECHNIQUE: Computed axial tomography of the head was obtained. IV contrast was not requested. All CT scans are performed using dose optimization technique as appropriate and may include automated exposure control or mA/KV adjustment according to patient size. FINDINGS: An intracranial bleed is not seen . The ventricles are normal in caliber. 2.8 x 0.6 centimeter fluid collection anterior left temporal fossa probably an arachnoid cyst Fluid within the sinuses/ mastoids is not seen. IMPRESSION: No acute intracranial abnormality is seen. If patient's symptoms persist MRI of the bra in would be recommended.
[2020-12-08 14:14] LABS: Absolute Lymphocytes (CBC) 0.7 K/uL (0.7-4.9); Basophils % 0.2 % (0-1.3); Hematocrit 32.2 % (36.0-45.0); Lymphocytes % 15.1 % (15.3-44.8); MPV 10.1 fL (7.6-11.3); RBC Red Blood Cell Count 3.51 M/uL (3.86-4.86)
[2020-12-08] MEDS ORDERED: METOCLOPRAMIDE 10 MG/2mL INJ ONE (14:18)
[2020-12-08] MEDS ORDERED: KETOROLAC 30 MG/ML INJ ONE (14:19)
[2020-12-08] MEDS ORDERED: dexAMETHasone 10 MG/ML VIAL ONE (14:19)
[2020-12-08] MEDS ORDERED: DIPHENHYDRAMINE 50 MG/ML VIAL ONE (14:19)
[2020-12-08] MEDS ORDERED: NA CHLORIDE 0.9% 1,000 ML ONE (14:19)
[2020-12-08 14:25] LABS: BUN Blood Urea Nitrogen 11 mg/dL (7-18); Bicarbonate 30 mmol/L (21-32); Glucose Level 84 mg/dL (74-106); Sodium Level 140 mmol/L (136-145)
[2020-12-08 15:06] LABS: SARS-COV-2 RT PCR POSITIVE (NEGATIVE)
--- NOTE | 2020-12-08 15:21 | ER ---
Nurse's Notes [facility] Name: Zee Catalan Age: 30 yrs Sex: Female : 1990 Arrival Date: 12/08/2020 Time: 12:54 Bed 24 Private MD: Diagnosis: Coronavirus infection, unspecified;Headache Presentation: 12/08 13:04 Chief complaint: Patient states: I feel really really tired, pressure on forehead, loss ca1 of appetite, doesn't really taste good, I don't smell much x 3 much. Denies N/V/D. Reports a little fever. Coronavirus screen: Client denies travel out of the [place] in the last 14 days. congestion, fatigue, fever, headache, muscle pain, shaking with chills, loss of taste or smell, Client presents with at least one sign or symptom that may indicate coronavirus-19. Standard/surgical mask placed on the client. Provider contacted for isolation considerations. Ebola Screen: Patient negative for fever greater than or equal to 101.5 degrees Fahrenheit, and additional compatible Ebola Virus Disease symptoms Patient denies exposure to infectious person. Patient denies travel to an Ebola-affected area in the 21 days before illness onset. No symptoms or risks identified at this time. Initial Sepsis Screen: Does the patient meet any 2 criteria? No. Patient's initial sepsis screen is negative. Does the patient have a suspected source of infection? No. Patient's initial sepsis screen is negative. Risk Assessment: Do you want to hurt yourself or someone else? Patient reports no desire to harm self or others. Onset of symptoms was December 08, 2020. 13:04 Method Of Arrival: Ambulatory ca1 13:04 Acuity: BENY 3 ca1 RECORD CHANGER TESTER: 13:09 LMP N/A - recent miscarriage ca1 Historical: - Allergies: 13:09 No Known Allergies; ca1 - Home Meds: 13:09 None [Active]; ca1 - PMHx: 13:09 None; ca1 - PSHx: 13:09 None; ca1 - Immunization history:: Flu vaccine is not up to date. - Social history:: Smoking status: Patient denies any tobacco usage or history of. Screenin:26 Abuse screen: Denies threats or abuse. Nutritional screening: No deficits noted. jd3 Tuberculosis screening: No symptoms or risk factors identified. Fall Risk Ambulatory Aid- None/Bed Rest/Nurse Assist (0 pts). Gait- Normal/Bed Rest/Wheelchair (0 pts) Mental Status- Oriented to own ability (0 pts). Total Cook Fall Scale indicates No Risk (0-24 pts). Assessment: 13:23 General: Appears in no apparent distress. uncomfortable, Behavior is calm, cooperative, jd3 appropriate for age, Reports feeling ill for 1-2 days, fatigue for 1-2 days. Pain: Complains of pain in head Quality of pain is described as pressure, sharp, squeezing. Neuro: Level of Consciousness is awake, alert, obeys commands, Oriented to person, place, time, situation, Pupils are PERRLA. Cardiovascular: Denies chest pain, Heart tones S1 S2 present Capillary refill < 3 seconds Patient's skin is warm and dry. Respiratory: Airway is patent Respiratory effort is even, unlabored, Respiratory pattern is regular, symmetrical, Breath sounds are clear bilaterally. Denies cough, shortness of breath at rest. GI: No signs and/or symptoms were reported involving the gastrointestinal system. Patient currently denies abdominal pain, constipation, diarrhea, nausea, vomiting. : No signs and/or symptoms were reported regarding the genitourinary system. EENT: No signs and/or symptoms were reported regarding the EENT system. Derm: Skin is intact, Skin is dry, Skin is normal, Skin temperature is warm. Musculoskeletal: Circulation, motion, and sensation intact. Range of motion: intact in all extremities. 14:25 Reassessment: Patient appears in no apparent distress at this time. No changes from jd3 previously documented assessment. Patient and/or family updated on plan of care and expected duration. Pain level reassessed. Patient is alert, oriented x 3, equal unlabored respirations, skin warm/dry/pink. 15:52 Reassessment: Patient appears in no apparent distress at this time. Patient and/or jd3 family updated on plan of care and expected duration. Pain level reassessed. Patient is alert, oriented x 3, equal unlabored respirations, skin warm/dry/pink. Patient states feeling better. Vital Signs: 13:04 BP 112 / 76; Pulse 117; Resp 16 S; Temp 98.8(TE); Pulse Ox 98% on R/A; Weight 70.31 kg ca1 (R); Height 5 ft. 1 in. (154.94 cm) (R); Pain 7/10; 14:25 BP 118 / 58; Pulse 100; Resp 17 S; Pulse Ox 100% on R/A; jd3 15:52 BP 113 / 68; Pulse 94; Resp 15 S; Pulse Ox 97% on R/A; jd3 13:04 Body Mass Index 29.29 (70.31 kg, 154.94 cm) ca1 ED Course: 12:54 Patient arrived in ED. ag5 13:08 Triage completed. ca1 13:09 Arm band placed on right wrist. ca1 13:13 Justice Bailey, RN is Primary Nurse. jd3 13:16 Abdirahman Lund PA is PHCP. cp 13:16 Tigre Aguila MD is Attending Physician. cp 13:26 Patient has correct armband on for positive identification. Bed in low position. Call jd3 light in reach. Side rails up X 1. Pulse ox on. NIBP on. 13:46 CT Head Brain wo Cont In Process Unspecified. EDMS 14:00 Inserted saline lock: 20 gauge in left antecubital area, using aseptic technique. Blood jd3 collected. 15:50 No provider procedures requiring assistance completed. IV discontinued, intact, jd3 bleeding controlled, No redness/swelling at site. Pressure dressing applied. Administered Medications: 14:23 Drug: NS 0.9% 1000 ml Route: IV; Rate: 1 bolus; Site: left antecubital; jd3 15:20 Follow up: Response: No adverse reaction; IV Status: Completed infusion; IV Intake: jd3 1000ml 14:24 Drug: Reglan 10 mg Route: IVP; Site: left antecubital; jd3 15:20 Follow up: Response: No adverse reaction jd3 14:24 Drug: Benadryl 25 mg Route: IVP; Site: left antecubital; jd3 15:20 Follow up: Response: No adverse reaction jd3 14:24 Drug: TORadol - Ketorolac 15 mg Route: IVP; Site: left antecubital; jd3 15:20 Follow up: Response: No adverse reaction jd3 14:24 Drug: Decadron - Dexamethasone 10 mg Route: IVP; Site: left antecubital; jd3 15:20 Follow up: Response: No adverse reaction jd3 Intake: 15:20 IV: 1000ml; Total: 1000ml. jd3 Outcome: 15:21 Discharge ordered by . leah 15:51 Discharged to home ambulatory, with family. jd3 15:51 Condition: stable 15:51 Discharge instructions given to patient, Instructed on discharge instructions, follow up and referral plans. medication usage, Demonstrated understanding of instructions, follow-up care, medications, Prescriptions given X 1. 15:52 Patient left the ED. jd3 Signatures: Dispatcher [employer] EDMS Abdirahman Lund PA PA cp Davies, Jonathon RN RN Blessing Paige RN RN ca1 Rigoberto, Alverto [facility]
--- NOTE | 2020-12-08 15:21 | EDPHYS ---
Physician Documentation [facility] Name: Zee Catalan Age: 30 yrs Sex: Female : 1990 Arrival Date: 12/08/2020 Time: 12:54 Bed 24 Private MD: ED Physician Tigre Aguila HPI: 12/08 13:35 This 30 yrs old Female presents to ER via Ambulatory with complaints of cp General Weakness, Head Pressure. 13:35 The patient complains of pain to the forehead. cp 13:35 The patient describes the headache as aching, a pressure. cp 13:35 Onset: The symptoms/episode began/occurred 3 day(s) ago. cp 13:35 Associated signs and symptoms: Pertinent positives: Photophobia sinus congestion, cp weakness, subjective fever, loss of taste and smell, fatigue, Pertinent negatives: altered mental status, neck stiffness, paresthesias, vomiting. Severity of symptoms: in the emergency department the pain is unchanged, despite home interventions. Headache History: The patient has had previous headaches and this one is more severe than previous episodes. 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 - Social history:: Smoking status: Patient denies any tobacco usage or history of. ROS: 13:40 Constitutional: Positive for body aches, fatigue, Negative for chills, fever, poor PO cp intake. 13:40 Eyes: Positive for photophobia. cp 13:40 ENT: Positive for sinus congestion, Negative for ear pain, difficulty swallowing, difficulty handling secretions. 13:40 Respiratory: Positive for slight cough, Negative for shortness of breath, wheezing. 13:40 Abdomen/GI: Negative for vomiting, diarrhea, constipation. 13:40 Skin: Negative for rash. 13:40 Neuro: Positive for headache, weakness, Negative for altered mental status, syncope. 13:40 All other systems are negative. Exam: 13:50 Constitutional: The patient appears in no acute distress, alert, awake, non-toxic, well cp developed, well nourished. 13:50 Head/face: Sinus tenderness, that is moderate, is located over the right frontal sinus cp and left frontal sinus. 13:50 Eyes: Periorbital structures: appear normal, Pupils: equal, round, and reactive to light and accomodation, Extraocular movements: intact throughout, Conjunctiva: normal, no exudate, no injection, Sclera: no appreciated abnormality, Lids and lashes: appear normal, bilaterally. 13:50 ENT: External ear(s): are unremarkable, Ear canal(s): are normal, clear, TM's: dullness, bilaterally, Nose: is normal, Mouth: Lips: moist, Oral mucosa: pink and intact, moist, Posterior pharynx: Airway: no evidence of obstruction, patent, Tonsils: are normal in appearance, swelling, is not appreciated, erythema, is not appreciated. 13:50 Neck: ROM/movement: is normal, is supple, no meningismus, no nuchal rigidity, Lymph nodes: no appreciated lymphadenopathy. 13:50 Chest/axilla: Inspection: normal, Palpation: is normal, no crepitus, no tenderness. 13:50 Cardiovascular: Rate: tachycardic, Rhythm: regular. 13:50 Respiratory: the patient does not display signs of respiratory distress, Respirations: normal, no use of accessory muscles, no retractions, labored breathing, is not present, Breath sounds: are clear throughout, no decreased breath sounds, no stridor, no wheezing. 13:50 Abdomen/GI: Inspection: abdomen appears normal, Palpation: abdomen is soft and non-tender, in all quadrants. 13:50 Back: pain, is absent, ROM is normal. 13:50 Skin: no rash present. 13:50 Neuro: Orientation: to person, place \T\ time. Mentation: is normal, Cerebellar function: is grossly normal, Motor: moves all fours, strength is normal, Sensation: is normal. Vital Signs: 13:04 BP 112 / 76; Pulse 117; Resp 16 S; Temp 98.8(TE); Pulse Ox 98% on R/A; Weight 70.31 kg ca1 (R); Height 5 ft. 1 in. (154.94 cm) (R); Pain 7/10; 14:25 BP 118 / 58; Pulse 100; Resp 17 S; Pulse Ox 100% on R/A; jd3 15:52 BP 113 / 68; Pulse 94; Resp 15 S; Pulse Ox 97% on R/A; jd3 13:04 Body Mass Index 29.29 (70.31 kg, 154.94 cm) ca1 MDM: 13:29 Patient medically screened. cp 14:00 Differential diagnosis: meningitis, meningoencephalitis, migraine, sinusitis, tension cp headache. 15:20 Data reviewed: vital signs, nurses notes, lab test result(s), radiologic studies, CT cp scan, and as a result, I will discharge patient. 15:20 Counseling: I had a detailed discussion with the patient and/or guardian regarding: the cp historical points, exam findings, and any diagnostic results supporting the discharge/admit diagnosis, lab results, radiology results, to return to the emergency department if symptoms worsen or persist or if there are any questions or concerns that arise at home. Response to treatment: the patient's symptoms have markedly improved after treatment, and as a result, I will discharge patient. 12/08 13:34 Order name: Strep; Complete Time: 15:13 12/08 13:36 Order name: BMP; Complete Time: 15:13 12/08 13:36 Order name: CBC with Diff; Complete Time: 15:13 12/08 15:13 Interpretation: Normal except: RBC 3.51; HGB 10.6; HCT 32.2; MCV 91.6; SENIA% 77.9; LYM% cp 15.1. 12/08 13:49 Order name: Urine Dipstick--Ancillary (enter results) [facility] 12/08 13:34 Order name: CT Head Brain wo Cont; Complete Time: 14:09 12/08 14:10 Interpretation: Report reviewed. 12/08 13:49 Order name: Urine --Ancillary (enter results) [facility] 12/08 14:48 Order name: Throat Culture EDND 12/08 15:07 Order name: COVID-19/FLU A+B; Complete Time: 15:13 [facility] 12/08 13:34 Order name: Urine Dipstick-Ancillary (obtain specimen); Complete Time: 13:48 12/08 13:34 Order name: Urine Test (obtain specimen); Complete Time: 13:48 12/08 13:36 Order name: IV; Complete Time: 13:59 cp 12/08 15:14 Order name: PO challenge; Complete Time: 15:49 cp Administered Medications: 14:23 Drug: NS 0.9% 1000 ml Route: IV; Rate: 1 bolus; Site: left antecubital; jd3 15:20 Follow up: Response: No adverse reaction; IV Status: Completed infusion; IV Intake: jd3 1000ml 14:24 Drug: Reglan 10 mg Route: IVP; Site: left antecubital; jd3 15:20 Follow up: Response: No adverse reaction jd3 14:24 Drug: Benadryl 25 mg Route: IVP; Site: left antecubital; jd3 15:20 Follow up: Response: No adverse reaction jd3 14:24 Drug: TORadol - Ketorolac 15 mg Route: IVP; Site: left antecubital; jd3 15:20 Follow up: Response: No adverse reaction jd3 14:24 Drug: Decadron - Dexamethasone 10 mg Route: IVP; Site: left antecubital; jd3 15:20 Follow up: Response: No adverse reaction jd3 Disposition: 16:00 Chart complete. cp 12/09 05:51 Co-signature as Attending Physician, Tigre Aguila MD I agree with the assessment and kdr plan of care. Disposition: 12/08/20 15:21 Discharged to Home. Impression: Coronavirus infection, unspecified, Headache. - Condition is Stable. - Discharge Instructions: Tension Headache, Adult, COVID-19. - Prescriptions for Prednisone 20 mg Oral Tablet - take 1 tablet by ORAL route every 12 hours for 5 days then take 1/2 tablet every 12 hours for 5 days; 15 tablet. - Medication Reconciliation Form, Thank You Letter, Antibiotic Education, Prescription Opioid Use form. - Follow up: Private Physician; When: 2 - 3 days; Reason: Worsening of condition. - Problem is new. - Symptoms have improved. Signatures: Dispatcher [employer] EDMS Tigre Aguila MD MD kdr Page, Corey, PA PA cp Davies, Jonathon, RN RN jd3 Blessing Solomon RN RN ca1 Corrections: (The following items were deleted from the chart) 12/08 14:27 13:35 Influenza Screen (A \T\ B)+BA.LAB.BRZ ordered. EDMS EDMS 14: 13:35 CORONAVIRUS+MR.LAB.BRZ ordered. EDMS EDMS 15:52 15:21 12/08/2020 15:21 Discharged to Home. Impression: Coronavirus infection, jd3 unspecified; Headache. Condition is Stable. Forms are Medication Reconciliation Form, Thank You Letter, Antibiotic Education, Prescription Opioid Use. Follow up: Private Physician; When: 2 - 3 days; Reason: Worsening of condition. Problem is new. Symptoms have improved. cp
[2020-12-08 16:00] VITALS: TEMP 98.8
[2020-12-08 16:03] VITALS: BP 113/68; O2SAT 97
[2020-12-08 17:10] LABS: Urine Blood TRACE (NEG); Urine Glucose NEGATIVE (NEG); Urine Protein 1+ (NEG); Urine Specific Gravity 1.025 (1.005-1.030)
== END 2020-12-08 15:52 | disposition home or self-care (01) ==
LOC: ER 12:51
DX: U07.1 COVID-19 (principal)
CPT/HCPCS: 0240U; 36415; 70450; 80048; 81003; 81025; 85025; 87070; 87081; 96361; 96374; 96375; 99284; J1100; J1200; J2765; J7030

== ENCOUNTER 2021-03-02 16:16 | Emergency (ER) | payer SELFPAY ==
[2021-03-02 18:15] LABS: Urine Blood Negative (Negative); Urine Glucose Negative (Negative); Urine Protein Trace (Negative); Urine Specific Gravity >=1.030 (1.005-1.030); Urine pH 6.5 (5.0-7.0)
[2021-03-02 18:54] LABS: Urine Specific Gravity/Preg >1.030 (1.005-1.030)
[2021-03-02 20:13] LABS: Absolute Lymphocytes (CBC) 1.7 K/uL (0.7-4.9); Basophils % 0.4 % (0-1.3); Hematocrit 31.8 % (36.0-45.0); Lymphocytes % 16.7 % (15.3-44.8); MPV 9.8 fL (7.6-11.3); RBC Red Blood Cell Count 3.86 M/uL (3.86-4.86)
--- NOTE | 2021-03-02 20:36 | RAD REPORT ---
EXAM DESCRIPTION: US - OB Limited - 03/02/2021 8:24 pm CLINICAL HISTORY: r/o ectopic;Abd pain Pelvic pain, abdominal pain COMPARISON: Head Brain Wo Cont dated 12/08/2020; OBSTETRICAL COMPLETE dated 08/15/2010 FINDINGS: A single gestational sac is seen within the uterus. The shape of the sac is within normal limits for gestational age. Within the sac is a single pole with estimated gestational age of 6 weeks 5 days. Small 2 cm subchorionic bleed. Heart rate is 129 BPM. The placenta is not yet developed due to early gestational age. Corpus luteal cyst is present on the left. Both ovaries within limits Normal Doppler blood flow was d emonstrated to both ovaries. No adnexal masses. IMPRESSION: Single live early intrauterine gestation with estimated gestational age of 6 weeks 5 day s, LAURA 10/21/2021. 2 cm subchorionic bleed.
[2021-03-02] MEDS ORDERED: CEFTRIAXONE 1000 MG/VIAL ONE (20:43)
[2021-03-02] MEDS ORDERED: AZITHROMYCIN 250 MG TAB ONE (20:43)
[2021-03-02] MEDS ORDERED: LIDOCAINE 1% MPF 2 ML AMPULE ONE (20:43)
[2021-03-02 20:44] LABS: BUN Blood Urea Nitrogen 12 mg/dL (7-18); Bicarbonate 24 mmol/L (21-32); Glucose Level 80 mg/dL (74-106); HCG, Quantitative 48708 mIU/mL (1-3); Sodium Level 138 mmol/L (136-145)
[2021-03-02] MEDS ORDERED: CEFTRIAXONE/SWI 1gm 1 GM/10 ML SYR ONE (20:59)
--- NOTE | 2021-03-02 20:59 | EDPHYS ---
Physician Documentation [facility] Name: Zee Catalan Age: 30 yrs Sex: Female : 1990 Arrival Date: 03/02/2021 Time: 16:19 Bed 24 Private MD: ED Physician Raghavendra Garber HPI: 03/02 20:50 This 30 yrs old Female presents to ER via Ambulatory with complaints of jmm Vaginal Discharge - 5 wks preg, Back Pain, Nausea/Vomiting. 20:50 The patient presents with vaginal discharge, back pain. Onset: The symptoms/episode jmm began/occurred gradually. Modifying factors: The symptoms are alleviated by nothing, the symptoms are aggravated by nothing. The patient has not experienced similar symptoms in the past. Patient states having some abnormal discharge. States being around 5 weeks . Having some pink discharge along with pain in the lower back. Also complains of nausea. 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 - Social history:: Smoking status: Patient denies any tobacco usage or history of. ROS: 20:50 Constitutional: Negative for fever, chills, and weight loss, Cardiovascular: Negative jmm for chest pain, palpitations, and edema, Respiratory: Negative for shortness of breath, cough, wheezing, and pleuritic chest pain. 20:50 : Positive for urinary symptoms, vaginal discharge. 20:50 All other systems are negative. Exam: 20:50 Constitutional: This is a well developed, well nourished patient who is awake, alert, jmm and in no acute distress. Head/Face: atraumatic. Eyes: EOMI, no conjunctival erythema appreciated ENT: Moist Mucus Membranes Neck: Trachea midline, Supple Chest/axilla: Normal chest wall appearance and motion. Cardiovascular: Regular rate and rhythm. No edema appreciated Respiratory: Normal respirations, no respiratory distress appreciated Abdomen/GI: Non distended, soft Back: Normal ROM Skin: General appearance color normal MS/ Extremity: Moves all extremities, no obvious deformities appreciated, no edema noted to the lower extremities Neuro: Awake and alert, normal gait Psych: Behavior is normal, Mood is normal, Patient is cooperative and pleasant 20:50 : Pelvic Exam: Speculum exam: mild bleeding, os that is closed. Vital Signs: 17:40 BP 125 / 87; Pulse 93; Resp 16; Temp 98.9; Pulse Ox 100% on R/A; Weight 76.2 kg; Height iw 5 ft. (152.40 cm); 19:56 BP 105 / 39; Pulse 84; Resp 16; Temp 97.6(TE); Pulse Ox 100% on R/A; 5 20:35 BP 109 / 61; Pulse 79; Resp 18; Pulse Ox 99% on R/A; em 17:40 Body Mass Index 32.81 (76.20 kg, 152.40 cm) iw MDM: 19:16 Patient medically screened. [facility] 20:56 Data reviewed: vital signs, nurses notes. Counseling: I had a detailed discussion with pérez the patient and/or guardian regarding: the historical points, exam findings, and any diagnostic results supporting the discharge/admit diagnosis, lab results, radiology results, the need for outpatient follow up, to return to the emergency department if symptoms worsen or persist or if there are any questions or concerns that arise at home. ED course: Patient is alert and non toxic in appearance in the ED. US reveals IUP. Advised to follow up with OBGYN. Patient treated for PID. Cultures drawn. Patient advised to follow up with pcp and otherwise given strict return precautinos. Patient understood and agrees with the plan of care. . 03/02 18:15 Order name: Urine --Ancillary (enter results) [facility] 03/02 18:15 Order name: Urine Dipstick-Ancillary; Complete Time: 19:14 [facility] 03/02 18:54 Order name: Urine --Ancillary; Complete Time: 19:14 [facility] 03/02 19:16 Order name: Quantitative Hcg [facility] 03/02 19:16 Order name: Abo/rh Typing [facility] 03/02 19:16 Order name: Basic Metabolic Panel [facility] 03/02 19:16 Order name: CBC with Diff [facility] 03/02 19:25 Order name: GC (GONORR/CHLAMYDIA) Probe [facility] 03/02 19:25 Order name: Wet Prep [facility] 03/02 20:16 Order name: CBC with Automated Diff; Complete Time: 20:16 [facility] 03/02 20:40 Order name: ABO/RH typing; Complete Time: 20:50 [facility] 03/02 20:45 Order name: Basic Metabolic Panel; Complete Time: 20:50 [facility] 03/02 20:45 Order name: HCG, Quantitative; Complete Time: 20:50 [facility] 03/02 21:31 Order name: Wet Prep [facility] 03/02 19:16 Order name: US OB Complete [facility] 03/02 19:16 Order name: IV Saline Lock; Complete Time: 19:45 [facility] 03/02 19:16 Order name: Labs collected and sent; Complete Time: 19:45 [facility] 03/02 19:16 Order name: NPO; Complete Time: 19:20 [facility] 03/02 19:16 Order name: Urine Dipstick-Ancillary (obtain specimen); Complete Time: 19:20 [facility] 03/02 19:25 Order name: Pelvic Exam Setup; Complete Time: 19:58 [facility] 03/02 20:37 Order name: US; Complete Time: 20:50 EDMS Administered Medications: 20:33 Not Given (Other Intervention Used): Rocephin (cefTRIAXone) 1 grams IM once em 20:33 Drug: AZITHromycin 1 grams Route: PO; em 21:20 Follow up: Response: No adverse reaction em 20:44 Drug: Rocephin (cefTRIAXone) 1 grams Route: IV; Rate: calculated rate; Site: right em antecubital; 21:20 Follow up: Response: No adverse reaction; IV Status: Completed infusion; IV Intake: 10mlem 21:19 Drug: Zofran (Ondansetron) 4 mg Route: IVP; Site: right antecubital; em 21:32 Follow up: Response: No adverse reaction em Disposition: 03/02/21 20:58 Discharged to Home. Impression: Threatened . - Condition is Stable. - Discharge Instructions: Threatened Miscarriage. - Medication Reconciliation Form, Thank You Letter, Antibiotic Education, Prescription Opioid Use form. - Follow up: Private Physician; When: 2 - 3 days; Reason: Recheck today's complaints, Continuance of care, Re-evaluation by your physician. Addendum: 03/05/2021 19:07 Co-signature as Attending Physician, Raghavendra mina a2 Signatures: Dispatcher [employer] EDEmmanuel Tamayo PA PA jmm Munoz, Edgar, RN Isabelle Chavez RN Raghavendra Barkley MD MD ma2 Corrections: (The following items were deleted from the chart) 03/02 21:33 20:58 03/02/2021 20:58 Discharged to Home. Impression: Threatened . Condition em is Stable. Forms are Medication Reconciliation Form, Thank You Letter, Antibiotic Education, Prescription Opioid Use. Follow up: Private Physician; When: 2 - 3 days; Reason: Recheck today's complaints, Continuance of care, Re-evaluation by your physician. pérez
--- NOTE | 2021-03-02 20:59 | ER ---
Nurse's Notes [facility] Name: Zee Catalan Age: 30 yrs Sex: Female : 1990 Arrival Date: 03/02/2021 Time: 16:19 Bed 24 Private MD: Diagnosis: Threatened Presentation: 03/02 17:40 Chief complaint: Patient states: just found out she was a few weeks ago, has iw had a hard time keeping anything down, has been having a lot of back pain and discharge with small amount of blood, previous miscarriage in November, LMP=2-20-21, G8, P4 , a little pain with urination. Coronavirus screen: At this time, the client does not indicate any symptoms associated with coronavirus-19. Ebola Screen: Patient negative for fever greater than or equal to 101.5 degrees Fahrenheit, and additional compatible Ebola Virus Disease symptoms Patient denies exposure to infectious person. Patient denies travel to an Ebola-affected area in the 21 days before illness onset. No symptoms or risks identified at this time. Initial Sepsis Screen: Does the patient meet any 2 criteria? No. Patient's initial sepsis screen is negative. Does the patient have a suspected source of infection? No. Patient's initial sepsis screen is negative. Risk Assessment: Do you want to hurt yourself or someone else? Patient reports no desire to harm self or others. Onset of symptoms. 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 - Social history:: Smoking status: Patient denies any tobacco usage or history of. Screenin:20 Abuse screen: Denies threats or abuse. Nutritional screening: No deficits noted. em Tuberculosis screening: No symptoms or risk factors identified. Fall Risk None identified. Assessment: 19:20 General: Appears in no apparent distress. comfortable, Behavior is calm, cooperative, em appropriate for age. Pain: Complains of pain in back Pain currently is 7 out of 10 on a pain scale. Neuro: Level of Consciousness is awake, alert, obeys commands, Oriented to person, place, time, situation. Cardiovascular: Capillary refill < 3 seconds Patient's skin is warm and dry. Respiratory: Airway is patent Respiratory effort is even, unlabored, Respiratory pattern is regular, symmetrical. GI: Abdomen is flat. : Reports vaginal bleeding that is spotty. Derm: Skin is intact, is healthy with good turgor, Skin is pink, warm \T\ dry. Musculoskeletal: Capillary refill < 3 seconds, Range of motion: intact in all extremities. 21:10 Reassessment: reports nausea, provider notified, received VO for Zofran 4 mg IVP x 1. em 21:33 Reassessment: Patient appears in no apparent distress at this time. Patient and/or em family updated on plan of care and expected duration. Pain level reassessed. Patient is alert, oriented x 3, equal unlabored respirations, skin warm/dry/pink. Patient states feeling better. Vital Signs: 17:40 BP 125 / 87; Pulse 93; Resp 16; Temp 98.9; Pulse Ox 100% on R/A; Weight 76.2 kg; Height iw 5 ft. (152.40 cm); 19:56 BP 105 / 39; Pulse 84; Resp 16; Temp 97.6(TE); Pulse Ox 100% on R/A; 5 20:35 BP 109 / 61; Pulse 79; Resp 18; Pulse Ox 99% on R/A; em 17:40 Body Mass Index 32.81 (76.20 kg, 152.40 cm) ED Course: 16:19 Patient arrived in ED. as 17:42 Triage completed. iw 17:42 Arm band placed on. iw 19:10 Lion Payan, FAYE is Primary Nurse. em 19:11 Emmanuel Munoz PA is PHCP. [facility] 19:11 Raghavendra Garber MD is Attending Physician. [facility] 19:20 Patient has correct armband on for positive identification. Placed in gown. Bed in low em position. Call light in reach. 19:40 Initial lab(s) drawn, by me, sent to lab. Inserted saline lock: 20 gauge in right em antecubital area, using aseptic technique. Blood collected. 19:57 Assist provider with pelvic exam: Set up pelvic tray. Performed by Emmanuel parisi Specimens sent to lab. Patient tolerated well. 19:58 Wet Prep Sent. 5 19:58 GC (GONORR/CHLAMYDIA) Probe Sent. 5 19:58 Quantitative Hcg Sent. 5 19:58 Abo/rh Typing Sent. 5 19:58 Basic Metabolic Panel Sent. 5 19:58 CBC with Diff Sent. 5 21:33 IV discontinued, intact, bleeding controlled, No redness/swelling at site. Pressure em dressing applied. Administered Medications: 20:33 Not Given (Other Intervention Used): Rocephin (cefTRIAXone) 1 grams IM once em 20:33 Drug: AZITHromycin 1 grams Route: PO; em 21:20 Follow up: Response: No adverse reaction em 20:44 Drug: Rocephin (cefTRIAXone) 1 grams Route: IV; Rate: calculated rate; Site: right em antecubital; 21:20 Follow up: Response: No adverse reaction; IV Status: Completed infusion; IV Intake: 10mlem 21:19 Drug: Zofran (Ondansetron) 4 mg Route: IVP; Site: right antecubital; em 21:32 Follow up: Response: No adverse reaction em Intake: 21:20 IV: 10ml; Total: 10ml. em Outcome: :58 Discharge ordered by MD. ortez 21:32 Discharged to home ambulatory. em 21:32 Condition: good 21:32 Discharge instructions given to patient, Instructed on discharge instructions, follow up and referral plans. Demonstrated understanding of instructions, follow-up care. 21:33 Patient left the ED. em Signatures: Emmanuel Munoz PA PA jmm Munoz, Edgar, Lorie Larson RN, Irene, FAYE MCKINNEY Stormy Carrasquillo [facility]
[2021-03-02] MEDS ORDERED: ONDANSETRON 4 MG/2 ML VIAL ONE (21:34)
[2021-03-06 02:48] LABS: C.trachomatis RNA,TMA Not Detected (Not Detected)
== END 2021-03-02 21:33 | disposition home or self-care (01) ==
LOC: ER 16:16
DX: O20.0 Threatened abortion (principal); Z3A.01 Less than 8 weeks gestation of pregnancy
CPT/HCPCS: 36415; 76815; 80048; 81003; 81025; 84702; 85025; 86900; 86901; 87210; 87490; 87590; 96365; 96375; 99284; J0696; J2405